=== PATIENT | female | born 1945 | race Caucasian/White ===

== ENCOUNTER 2017-06-02 19:33 | Inpatient (IN) | payer MEDICARE, MEDICAID ==
[2017-06-02] MEDS ORDERED: NIFEdipine 30 mg ER Tab PO STA (21:00)
[2017-06-02] MEDS ORDERED: Dextrose 10% 1,000 ML IV SCH (21:00)
[2017-06-02] MEDS ORDERED: NITROGLYCERIN SPRAY 4.9 GM SL STA (21:14)
[2017-06-02 21:18] LABS: % BASOPHILS 0.3 % (0.0-2.0); % EOSINOPHILS 0.8 % (0.0-5.0); % LYMPHOCYTES 15.6 % (20.0-50.0); % MONOCYTES 3.7 % (2.0-10.0); % NEUTROPHILS 79.6 % (40.0-80.0); HEMATOCRIT 34.9 % (41.0-60); HEMOGLOBIN 11.5 gm/dL (12-16); MEAN CELL VOLUME 80.4 fl (81-100); MEAN CORPUSCULAR HEMOGLOBIN 26.5 pg (27.0-31.0); MEAN PLATELET VOLUME 9.3 fl; NEUTROPHILE ABSOLUTE 7.1 Th/cmm (1.8-8.0); PLATELET COUNT 226 Th/cmm (150-400); RED BLOOD COUNT 4.34 Mil/cmm (3.80-5.20); RED CELL DISTRIBUTION WIDTH 15.6 % (11.5-20.0)
[2017-06-02 21:25] LABS: WHITE BLOOD COUNT 8.9 Th/cmm (4.8-10.8)
[2017-06-02 21:33] LABS: CHOLESTEROL 253 mg/dL (<200); TRIGLYCERIDES 174 mg/dL (<150)
[2017-06-02] MEDS ORDERED: Dextrose 10% 1,000 ML IV ONE (21:48)
[2017-06-02 21:50] LABS: ALB/GLOB RATIO 1.1 (1.0-1.8); ALKALINE PHOSPHATASE 75 U/L (34-104); ANION GAP 11.1 (7.0-16.0); BILIRUBIN,TOTAL 0.3 mg/dL (0.3-1.0); BUN - UREA NITROGEN 33 mg/dL (7-25); CALCIUM SERUM 8.9 mg/dL (8.6-10.3); CARBON DIOXIDE 23.9 mEq/L (21.0-31.0); CHLORIDE 103 mEq/L (98-107); CREATININE - SERUM 2.2 mg/dL (0.6-1.2); GLUCOSE 132 mg/dL (70-105); SGOT 23 U/L (13-39); SGPT/ALT 15 U/L (7-52); SODIUM SERUM 135 mEq/L (136-145)
[2017-06-02] MEDS ORDERED: Potassium Chloride 20 mEq ER Tab PO ONE ×2 (22:42→22:43)
[2017-06-02] MEDS ORDERED: Metoclopramide 5 mg/mL 2mL Vial ONE (23:57)
[2017-06-03] MEDS ORDERED: INSULIN ASPART SLIDING SCALE 100 UNITS/ML UNIT SUBQ ONE (00:16)
[2017-06-03 00:21] LABS: URINE BILIRUBIN NEGATIVE (NEGATIVE); URINE BLOOD NEGATIVE (NEGATIVE); URINE GLUCOSE (UA) NEGATIVE (NEGATIVE); URINE KETONE NEGATIVE (NEGATIVE); URINE PROTEIN 100 mg/dL (NEGATIVE); URINE UROBILINOGEN 0.2 E.U./dL (0.2 - 1.0)
[2017-06-03 00:23] LABS: URINE COLOR YELLOW
[2017-06-03 00:33] LABS: URINE BACTERIA MANY /hpf (NONE SEEN); URINE EPITHELIAL CELLS FEW /lpf (FEW); URINE RBC 0-2 /hpf (0-5)
--- NOTE | 2017-06-03 01:48 | ER Physician Documentation ---
DATE OF SERVICE: 06/02/2017 EMERGENCY ROOM EVALUATION AND TREATMENT The patient came via [facility]. I was told that the patient had a low blood sugar of 40, but by the time the patient came to the hospital here, the blood sugar according to the nurse was 147 and the blood pressure also was told that it was low, but the blood pressure here was 157/56, temperature is 97.9, pulse is 51, respirations 15. These are our Emergency Room parameters. The saturation is 98%. Height of 5 feet, weight of 144. The history was taken from the patient. The patient was brought from home. An EKG has been ordered; I will look at it to see what is the problem. The patient says that she has had 6 children and she has had two C-sections. Her current medications include glipizide 5 mg p.o. twice a day; carvedilol, the strength of which she does not know; nifedipine 90 mg p.o. once a day. She had two C-sections done in the past. MEDICAL HISTORY: Includes a history of hypoglycemia about 2 months ago, while she was driving she felt that she was confused and she was getting diaphoretic and not feeling good, and hence she was admitted over there to the hospital. HISTORY OF PRESENT ILLNESS: Currently, the patient was apparently fine until about yesterday night when she was not feeling good, and the same thing continued today, and she was brought to the Emergency Room over here. The triage nurse took care of the patient and because of her blood sugar of 40 and because of long-acting glipizide and hypotension and hypoglycemia, the patient most likely may need admission. We will inform the primary care physician. I was told the doctor is Dr. Regan, but the nurse will do the research and find out who is the admitting doctor. I will talk to that doctor. The patient, otherwise, is doing fine. No other complaints. She is . She has 6 children. She has no other complaints. FAMILY HISTORY: Benign and negative. REVIEW OF SYSTEMS: EYES: No history of double vision, blurring, or blindness. CENTRAL NERVOUS SYSTEM: No history of TIA, stroke, encephalitis, meningitis. PULMONARY: No history of pneumonia, TB, pulmonary embolism, COPD, emphysema, bronchitis. BONES AND JOINTS: No apparent complaints. GASTROINTESTINAL: No diarrhea, no constipation, no vomiting. ENDOCRINE: The patient has diabetes mellitus. No history of thyroid disease. The patient's other history is noncontributory. BONES AND JOINTS: No apparent complaints. DIAGNOSTIC DATA: An EKG was done, which showed a normal sinus rhythm, nonspecific ST-T changes, T waves were inverted in lead I, aVL, V4-V6. It looks like in the lateral wall of the left ventricle, there are some nonspecific diffuse T-wave changes, which may be secondary to ischemia. We will check the patient's lipid profile to see if there is anything wrong with the lipids and we will give the patient some nitrates and p.r.n. nitrates ordered if needed. PHYSICAL EXAMINATION: GENERAL: The patient appears to be awake, alert, oriented, not in any acute cardiorespiratory distress. HEENT: Conjunctivae pink. Sclerae white. HEENT is normal. Jugular venous pressure is normal. EXTREMITIES: No cyanosis, no petechia, no ecchymosis, no edema over the legs. Peripheral pulses appear to be normal. CHEST: Clear. NECK: Trachea being central. CHEST: Fairly good air entry. Both lungs without any rales, rhonchi, bronchial breathing. ABDOMEN: Soft, benign, and negative. Has a surgical scar in the lower part, vertical scar for two C-sections. The patient has three boys and three girls, but only two sections were done. Gastrointestinal examination reveals bowel sounds are normal. Liver and spleen not enlarged. No free fluid in the abdominal cavity. HEART: Reveals normal heart sounds. No fourth heart sound. Second heart sound is physiologically split. CENTRAL NERVOUS SYSTEM: The patient has a history of previous paralysis of the left face. She does not know much details, but the arm and the leg, etc. are not paralyzed. CLINICAL IMPRESSION: The patient presented with hypoglycemia, most likely may be secondary to glipizide 5 mg b.i.d., glipizide on hold. The patient is getting D10 in water. We will keep the rate at 150 mL an hour. Blood pressure was 157/46. Other blood pressures are not taken and we need to get more blood pressure readings. The triage nurse has been asked to call the patient's physician, so that we can discuss the case as to what further to be done. The other possibility is that the patient may be having coronary artery disease. We will check the troponin level on the patient. We will also check the patient's lipid profile and nitroglycerin on a p.r.n. basis for the patient. Other orders have been written for the patient. X-ray has been ordered. JOB# [id number]
[2017-06-03] MEDS: D5-0.45NS 1,000 ML IV SCH (02:28)
[2017-06-03] MEDS ORDERED: Potassium Chloride 20 mEq ER Tab PO ONE (02:44)
[2017-06-03 04:21] VITALS: BP 170/89
[2017-06-03 04:30] LABS: % BASOPHILS 0.3 % (0.0-2.0); RED CELL DISTRIBUTION WIDTH 15.9 % (11.5-20.0)
[2017-06-03 04:39] LABS: % EOSINOPHILS 1.1 % (0.0-5.0); % LYMPHOCYTES 25.6 % (20.0-50.0); % MONOCYTES 7.1 % (2.0-10.0); % NEUTROPHILS 65.9 % (40.0-80.0); ANION GAP 8.3 (7.0-16.0); BUN - UREA NITROGEN 31 mg/dL (7-25); BUN/CREATININE RATIO 14.1; CALCIUM SERUM 8.5 mg/dL (8.6-10.3); CARBON DIOXIDE 25.1 mEq/L (21.0-31.0); CHLORIDE 105 mEq/L (98-107); CREATININE - SERUM 2.2 mg/dL (0.6-1.2); GLUCOSE 186 mg/dL (70-105); HEMOGLOBIN 10.1 gm/dL (12-16); MEAN CELL VOLUME 80.1 fl (81-100); MEAN CORPUSCULAR HEMOGLOBIN 26.3 pg (27.0-31.0); MEAN CORPUSCULAR HGB CONC 32.8 pg (28.0-36.0); NEUTROPHILE ABSOLUTE 5.2 Th/cmm (1.8-8.0); PLATELET COUNT 207 Th/cmm (150-400); POTASSIUM SERUM 3.4 mEq/L (3.5-5.1); RED BLOOD COUNT 3.83 Mil/cmm (3.80-5.20); SODIUM SERUM 135 mEq/L (136-145); WHITE BLOOD COUNT 7.9 Th/cmm (4.8-10.8)
[2017-06-03 04:42] LABS: HEMATOCRIT 30.7 % (41.0-60)
--- NOTE | 2017-06-03 07:36 | Diagnostic Imaging Report ---
Portable chest x-ray Time: 2116 hours History: Congestive heart failure Allowing for portable technique the heart size is prominent. No focal pulmonary parenchymal processes. No hilar or mediastinal abnormalities. Impression: No acute abnormalities.
[2017-06-03] MEDS ORDERED: NIFEdipine 30 mg ER Tab PO SCH ×2 (10:15→21:00)
--- NOTE | 2017-06-03 11:21 | Consultation ---
DATE OF CONSULTATION: REFERRING PHYSICIAN: Oumar Regan M.D. REASON FOR CONSULT: Diabetes out of control with hypoglycemic episodes. HISTORY OF PRESENT ILLNESS: The patient is a 71-year-old pleasant female with history of type 2 diabetes diagnosed in 2002, who started using insulin about a year ago, history of essential hypertension and insomnia, who reports 2 episodes of hypoglycemia over the last couple of months. During the first episode, the patient apparently was driving and had to pull off the street given weakness and dizzyness. She was eventually assisted and taken to the hospital. This time around, she was feeling well until she started having blurry vision and weakness. She was able to call her who brought her into the ER. Her glucometer reading was noted to be 40. The patient has been admitted to telemetry for further management and care. The patient states that her diabetes has been somewhat out of control for the last 2 years after she had an episode of shingles. At that time, her glucose was noted to be high, and apparently her medications were adjusted and since then she has been having labile glucometer readings. She also states that at times, she eats small portions of food and this could be the reason why her hypoglycemia has been worsened. MEDICATIONS: Include glipizide which was started a few weeks ago prior to the episodes commencing. Her glipizide was 5 mg twice a day. She also takes Coreg and previously was taking metformin, but was taken out of her regimen secondary to renal insufficiency. PAST MEDICAL HISTORY: As noted above. PAST SURGICAL HISTORY: Include two C-sections and cervical neck ablation 40 years ago. FAMILY HISTORY: Hypertension on her mom side. SOCIAL HISTORY: No tobacco, ETOH or illicit drug usage. ALLERGIES: NKDA. OUTPATIENT MEDICATIONS: Procardia 30 mg p.o. daily, metoprolol 25 daily. She is taking also a long-acting insulin, which she could not remember and glipizide 2.5 b.i.d. REVIEW OF SYSTEMS: CONSTITUTIONAL: No fever or chills. No recent weight loss. CARDIOVASCULAR: No chest pain or palpitations. PULMONARY: No cough or sputum production. GASTROINTESTINAL: No bowel habit changes. GENITOURINARY: No bladder habit changes. NEUROLOGIC: Dizziness and lightheadedness. No syncopal episode. PHYSICAL EXAMINATION: VITAL SIGNS: Temperature 98.4, pulse 62 to 65, blood pressure 170/65, respirations 18, satting 98% on room air. GENERAL: She is a well-developed, well-nourished female, not in acute distress. HEAD AND NECK: Normocephalic, atraumatic. Pupils reactive to light. Extraocular movements are intact. Oropharynx moist and clear. NECK: There is no JVD or LAD. CARDIAC: Regular rate and rhythm without any murmurs. LUNGS: Clear to auscultation bilaterally. ABDOMEN: Soft, supple, nontender, nondistended. Normoactive bowel sounds. EXTREMITIES: On lower extremities, there is no pedal edema. NEUROLOGIC: Grossly intact and nonfocal. Cranial nerves 2-12 are within normal limits. She is able to move all 4 extremities with equal force and strength. LABORATORY DATA: White count 8.9 and H and H with a platelet count of 226. Sodium 135, potassium 3.4, chloride 103, BUN 33, creatinine 2.2, glucose 132. Triglycerides 174. Cholesterol 253, LDL 185, HDL 60. UA shows some protein and positive for leukocyte esterase with 6-10 wbc's. DIAGNOSTICS: Chest x-ray shows no acute abnormalities. ASSESSMENT: 1. Type 2 diabetes with hypoglycemic episodes. 2. History of type 2 diabetes with renal complications. 3. Hypertension, out of control. 4. Likely chronic renal insufficiency. 5. Anemia, likely secondary to above. 6. History of insomnia. 7. Elevated DD level. PLAN: The patient has been admitted to the medical/surgical floor where she has been placed on IV fluids, D10 50 mL per hour. We will continue glucometer readings q.4 hours around the clock x 24 hours. The patient's glipizide has been discontinued and she has been on a insulin sliding scale for the time being. Her electrolytes will be monitored and her potassium has been repleted. The patient's blood pressure medication has been increased and I will start her on Cipro p.o. for UTI. Will adjust BP meds as tolerated. I would like to thank Dr. Oumar Regan for the consult. JOB# [id number] [facility]
[2017-06-03] MEDS: NIFEdipine 30 mg ER Tab PO SCH ×2 (13:01→20:12)
--- NOTE | 2017-06-03 14:46 | History & Physical ---
ADMIT DATE: 06/03/2017 INITIAL SYMPTOMS: 1. Gross hypoglycemia. 2. Diabetes, poorly controlled. 3. Altered level of consciousness. 4. Body tremors. 5. Abnormal EKG. RECENT MEDICAL HISTORY: This patient is a 71-year-old female, who presented to [facility] ER yesterday in the late evening of 06/02/2017. At home, the patient was experiencing chills, trembling with a very, very low glucose reading in the 50s, having recently changed her diabetes by mouth medication. She was brought to the Emergency Department at [facility] and there were multiple pathologies noted on lab testing and otherwise, those included hemoglobin of 10.1, demonstrating anemia; a low potassium of 3.4; a low sodium of 135; an elevated BUN of 31 and elevated creatinine, 2.2 both indicative of chronic kidney disease; elevated hemoglobin A1c already known 7.5 diabetic; and an abnormal EKG that demonstrated T-wave abnormalities, borderline pathologic QT prolonged intervals, rule out possible lateral ischemia on her borderline abnormal EKG. Because of the patient's age, the low blood sugar, and the altered level of consciousness of this patient on initial presentation when the ambulance picked her up, the ER doctor felt it was imperative that she will be admitted. She spoke at length with me about the patient's laboratory findings and I agree that the patient required admission. FAMILY HISTORY: The family history of this patient is unknown. SOCIAL HISTORY: This patient does not taking any alcoholic beverages. The history regarding cigarette smoking is not known with this patient. ALLERGIES: No known drug allergies. REVIEW OF SYSTEMS: HEENT: Not significant for today's admission. CHEST: Not significant for today's admission. CARDIAC: Significant for today's admission and that the patient has a borderline abnormal EKG, demonstrating prolonged QT interval and T-wave abnormalities. LUNGS: Not significant for today's admission. ABDOMEN: Not significant for today's admission. EXTREMITIES: Not significant for today's admission. GENITALIA: Not significant for today's admission. PSYCHIATRIC: Not significant for today's admission. NEUROLOGICAL: Significant for today's admission and that the patient on initial capture by the ambulance was demonstrating altered level of consciousness. PHYSICAL EXAMINATION: HEENT: Normal cephalous. Pupils are equally reactive to light and accommodation. Fundi intact bilaterally. Extraocular motion intact. Oropharynx is clear. Tympanic membranes intact, right and left with no infection. Cephalous as mentioned, demonstrates no trauma and is symmetrical. CHEST: Normal inspiration and expiratory movements. CARDIAC: Lower than normal cardiac rate in the low 50s. No gross murmurs, although, EKG is significant for T-wave abnormalities and QT prolonged interval. ABDOMEN: Nondistended and nontender to palpation in all 4 quadrants. No abnormal masses. Positive bowel sounds in all 4 quadrants. EXTREMITIES: Nontender to palpation. Motor 5/5 in all 4 extremities. GENITALIA: Refused. PSYCHIATRIC: Alert and oriented x 4. Mood and affect normal. IMPRESSION: 1. Hypoglycemia. 2. Diabetes with poor control of blood sugar. 3. Altered level of consciousness. 4. Abnormal EKG. 5. Chronic kidney disease, unstaged. PLAN: Admit to medical surgery with telemetry. We will continue with the D10 IV that the patient was receiving prescribed by the ER doctor. We will have the patient on clear liquids temporarily. We will have the patient continue her medications that she brought from home, nifedipine extended release 90 mg p.o. daily and glipizide 5 mg, we are not going to continue. We will see what Dr. Renner has to say about that, but prior to Dr. Rnener seen the patient, I have instituted a sliding scale utilizing regular insulin; readings taken every 4 hours of fingerstick glucose any readings between 150 and 200, will receive 2 units of regular insulin; 201-250, received 4 units of regular insulin; 251 of blood glucose to 300, will receive 6 units; and 301-350, will receive 8 units; greater than 350, received 10 units and this is sliding scale that will be taken every 4 hours. Because of elevated D-dimer, that turned out to be 1950, we will also be performing a VQ scan, lung perfusion scan, rule out pulmonary embolus and also a Doppler ultrasound of the lower extremities to rule out DVT of the lower extremities, both right and left sides. CONSULTS: 1. Consult with Dr. Cheri Mix for abnormal EKG. Rule out congestive heart failure with diastolic dysfunction. Dr. Regan is ordering troponin I to be performed x 4 every 6 hours, D-dimer, BNP, and repeat EKG in the morning. Repeat chest x-ray. 2. Consult Nephrology, Dr. Hendricks for chronic kidney disease with the elevated creatinine and the elevated BUN. 3. Consult Dr. Renner in internal medicine/diabetes for diabetes not well controlled, requiring more professional treatment. JOB# [id number]
--- NOTE | 2017-06-03 15:13 | Diagnostic Imaging Report ---
Bilateral lower extremity DVT study HISTORY: Pain COMPARISON: None Technique: Longitudinal and transverse sonographic images of the bilateral lower extremity veins were obtained with doppler analysis. FINDINGS: There is normal compressibility, augmentation and phasicity of the bilateral common femoral, superficial femoral, popliteal, and posterior tibial veins. No thrombus is visualized. IMPRESSION: No evidence of thrombus within the bilateral lower extremity veins.
[2017-06-03] MEDS ORDERED: INSULIN ASPART SLIDING SCALE 100 UNITS/ML UNIT SUBQ SCH (16:30)
[2017-06-03] MEDS: INSULIN ASPART SLIDING SCALE 100 UNITS/ML UNIT SUBQ SCH ×2 (17:45→20:16)
--- NOTE | 2017-06-03 18:54 | Consultation ---
DATE OF CONSULTATION: 06/03/2017 ATTENDING PHYSICIAN: Oumar Regan M.D. REASON FOR CONSULTATION: Worsening kidney function, electrolyte imbalance and fluid management. HISTORY OF PRESENT ILLNESS: This is a 71-year-old female with past medical history of chronic kidney disease, who came in because of hypoglycemic episode. A few hours prior to admission, the patient developed blurry vision, dizziness, along with weakness. Her blood sugar turned out to be 40. Her then took her to the Emergency Room. Her blood sugar at the Emergency Room was 147. Vitals including blood pressure was 152/56, temperature of 97.9, but a pulse of 51. Chest x-ray revealed no acute disease. Troponin levels were 0.02, 0.02, and 0.03 respectively. BNP was 608. Urinalysis was suggestive of uncomplicated UTI. EKG revealed normal sinus at [address]-T wave changes. She had no nausea and vomiting, diarrhea, headaches, chest pain, shortness of breath or palpitations. Her labs drawn at the Emergency Room revealed BUN/creatinine of 33/2.2. PAST MEDICAL HISTORY: 1. Chronic kidney disease. 2. Type 2 diabetes mellitus for approximately 3 years. 3. Essential hypertension for 45 years. PAST SURGICAL HISTORY: 2 section. SOCIAL HISTORY: No history of alcohol or tobacco use. She used to work gathering fruits and vegetables. FAMILY HISTORY: Noncontributory to present illness. REVIEW OF SYSTEMS: GENERAL: She did complain of weakness. Appetite had been fair. No fever, no chills. HEENT: She did develop some mild dizziness, lightheadedness, but no headaches. Vision became blurry. Hearing acuity remains within acceptable limits. CARDIORESPIRATORY: She has a history of hypertension. At this point, she does not have any chest pain, palpitations, diaphoresis, shortness of breath. No cough. GASTROINTESTINAL: No nausea and vomiting, abdominal pain or cramping, hematemesis, melena, hematochezia, or diarrhea. ENDOCRINE: She has a history of diabetes, but no history of thyroid abnormalities, no dyslipidemia. MUSCULOSKELETAL: Multiple joint arthralgias. GENITOURINARY: History of chronic kidney disease. Denied any dysuria, no hematuria; however, urine was suggestive of a UTI. NEUROPSYCH: No syncopal episode or seizure activity. No neuropathy. PHYSICAL EXAMINATION: NEUROLOGIC: The patient is alert, verbal, and comfortable. VITAL SIGNS: Blood pressure is 138/78, pulse 82, temperature 97 degrees. SKIN: Good turgor, warm. No rash, no jaundice appreciated. HEENT: Head normocephalic, atraumatic. EYES: Extraocular muscles intact. Pupils equal, round, reactive to light and accommodation. Anicteric sclerae, pink conjunctivae. Nose, midline nasal septum. Mouth, moist mucosa with adequate dentition. NECK: Supple. No adenopathy, no thyromegaly, no bruits. Trachea palpated in the midline. CHEST AND CVS: S1, S2. No rub, murmur, or gallop appreciated. Point of maximal impulse fifth intercostal space, left midclavicular line. No abdominal or femoral bruits appreciated. LUNGS: Equal expansion. No use of accessory muscles. No supraclavicular retractions. Decreased breath sounds, but clear to auscultation without any wheeze. BREASTS: Symmetrical, without any discharge. ABDOMEN: Globular, soft. Positive for bowel sounds. No bruits, either diastolic or systolic. RECTAL: The patient refused. GENITOURINARY: Normal appearing female genitalia. MUSCULOSKELETAL: No effusions present in her joints with adequate range of motion. EXTREMITIES: No evidence of any edema, cyanosis or clubbing with palpable femoral, popliteal and dorsalis pedis pulses. NEUROLOGIC: The patient is alert, verbal, motor is 5/5. Cranial nerves 3-12 intact. Sensory intact. LABORATORY DATA: Did reveal a white count of 7.9, hemoglobin 10.1, hematocrit 30.7, D-dimer of 1950. Sodium 135, potassium 3.4, chloride 105, bicarbonate 25, BUN 31, creatinine 2.2, glucose 186, hemoglobin A1c is 7.5%, calcium 8.5. BNP 608. IMPRESSION: 1. Chronic kidney disease, MDRD GFR 21.9 mL per minute, stage 4. The patient's chronic kidney disease is secondary to hypertension and atherosclerosis with long stranding history of hypertension. As per patient, she was just recently diagnosed to have diabetes, so I doubt that there is adequate time for development of diabetic nephropathy. 2. Hypoglycemic episode secondary to sulfonyl urea. 3. Type 2 diabetes mellitus. 4. Essential hypertension. 5. History of bradycardia secondary to beta-edmond as well as calcium channel edmond. 6. Elevated BNP secondary to kidney failure, doubt patient is in acute congestive heart failure. 7. Hypokalemia. 8. Dyslipidemia. PLAN: 1. Urinalysis. 2. Urine spot sodium, eosinophils and creatinine. 3. Renal ultrasound. 4. Agree with potassium replacement. 5. Follow up electrolytes, magnesium, TSH level. 6. Consider discontinuing Lasix because the patient does not have any fluid retention. 7. Agree with sliding scale only, avoid sulfonylureas as well as basal insulin for now. [facility]# [id number]
[2017-06-03] MEDS: Atorvastatin Calcium 10 MG TAB PO SCH (20:12)
[2017-06-04] MEDS: INSULIN ASPART SLIDING SCALE 100 UNITS/ML UNIT SUBQ SCH ×7 (04:25→20:34)
[2017-06-04] MEDS: NIFEdipine 30 mg ER Tab PO SCH ×3 (04:31→22:26)
[2017-06-04 05:43] LABS: ANION GAP 9.3 (7.0-16.0); BUN - UREA NITROGEN 24 mg/dL (7-25); CALCIUM SERUM 8.7 mg/dL (8.6-10.3); CARBON DIOXIDE 26.3 mEq/L (21.0-31.0); CHLORIDE 107 mEq/L (98-107); GLUCOSE 116 mg/dL (70-105); MAGNESIUM 1.9 mg/dL (1.9-2.7); PHOSPHOROUS 3.6 mg/dL (2.5-5.0); POTASSIUM SERUM 3.6 mEq/L (3.5-5.1); SODIUM SERUM 139 mEq/L (136-145)
[2017-06-04] MEDS: D5-0.45NS 1,000 ML IV SCH (06:39)
--- NOTE | 2017-06-04 07:13 | Diagnostic Imaging Report ---
Exam: Ventilation/perfusion scan HISTORY: Memory embolism. Findings: Utilizing 38.7 mCi technetium 99m DTPA and 5.5 mCi of technetium 99 MAA ventilation/perfusion examination of the lungs was performed multiple planes. The study demonstrates normal uptake of radiopharmaceutical throughout the lung parenchyma. There is no evidence for mismatched ventilation/perfusion defects. IMPRESSION: Normal exam, no evidence of pulmonary emboli bilaterally.
--- NOTE | 2017-06-04 08:55 | Diagnostic Imaging Report ---
Portable chest x-ray HISTORY: Shortness of breath Compared with the prior exam of June 02, 2017, there is persistent cardiomegaly. No focal pulmonary processes. No hilar or mediastinal abnormalities. IMPRESSION: 1. No focal pulmonary processes 2. Persistent cardiomegaly
[2017-06-04] MEDS: Atorvastatin Calcium 10 MG TAB PO SCH (09:19)
--- NOTE | 2017-06-04 12:01 | Diagnostic Imaging Report ---
Exam: Renal ultrasound. HISTORY: Chronic renal disease. Findings: Real-time ultrasound summation kidneys performed multiple planes. The study demonstrates no evidence of obstructive uropathy or nephrolithiasis. Right kidney measures 10.2 x 5 x 6 cm and contains 1.5 cm cyst. Left kidney measures 7.5 x 3.8 x 3.3 cm diameter. The bladder is intact. IMPRESSION normal examination of kidneys.
[2017-06-04] MEDS ORDERED: Probiotic Screen MC PRN (15:21)
--- NOTE | 2017-06-04 15:39 | General Progress Note ---
Subjective - Review of Systems Service Date: 06/04/17 Subjective: alert, comfortable, verbal, no sob,cp Objective - Results Result Diagrams: 06/03/17 04:00 06/04/17 04:57 Recent Labs: Laboratory Last Values WBC 7.9 Th/cmm (4.8-10.8) 06/03/17 04:00 RBC 3.83 Mil/cmm (3.80-5.20) 06/03/17 04:00 Hgb 10.1 gm/dL (12-16) L 06/03/17 04:00 Hct 30.7 % (41.0-60) L D 06/03/17 04:00 MCV 80.1 fl (81-100) L 06/03/17 04:00 MCH 26.3 pg (27.0-31.0) L 06/03/17 04:00 MCHC Differential 32.8 pg (28.0-36.0) 06/03/17 04:00 RDW 15.9 % (11.5-20.0) 06/03/17 04:00 Plt Count 207 Th/cmm (150-400) 06/03/17 04:00 MPV 10.0 fl 06/03/17 04:00 Neutrophils % 65.9 % (40.0-80.0) 06/03/17 04:00 Lymphocytes % 25.6 % (20.0-50.0) 06/03/17 04:00 Monocytes % 7.1 % (2.0-10.0) 06/03/17 04:00 Eosinophils % 1.1 % (0.0-5.0) 06/03/17 04:00 Basophils % 0.3 % (0.0-2.0) 06/03/17 04:00 Eos Smear Source URINE 06/03/17 16:41 Eos Smear Total Cells NONE SEEN (NONE SEEN) 06/03/17 16:41 D-Dimer 1950 ng/mL (100-400) H 06/03/17 04:00 Sodium 139 mEq/L (136-145) 06/04/17 04:57 Potassium 3.6 mEq/L (3.5-5.1) 06/04/17 04:57 Chloride 107 mEq/L (98-107) 06/04/17 04:57 Carbon Dioxide 26.3 mEq/L (21.0-31.0) 06/04/17 04:57 Anion Gap 9.3 (7.0-16.0) 06/04/17 04:57 BUN 24 mg/dL (7-25) 06/04/17 04:57 Creatinine 2.0 mg/dL (0.6-1.2) H 06/04/17 04:57 Est GFR ( Amer) TNP 06/04/17 04:57 Est GFR (Non-Af Amer) TNP 06/04/17 04:57 BUN/Creatinine Ratio 12.0 06/04/17 04:57 Glucose 116 mg/dL (70-105) H 06/04/17 04:57 POC Glucose 179 MG/DL (70 - 105) H 06/04/17 11:17 Hemoglobin A1c % 7.5 % (4.0-6.0) H 06/02/17 21:10 Calcium 8.7 mg/dL (8.6-10.3) 06/04/17 04:57 Phosphorus 3.6 mg/dL (2.5-5.0) 06/04/17 04:57 Magnesium 1.9 mg/dL (1.9-2.7) 06/04/17 04:57 Total Bilirubin 0.3 mg/dL (0.3-1.0) 06/02/17 21:10 AST 23 U/L (13-39) 06/02/17 21:10 ALT 15 U/L (7-52) 06/02/17 21:10 Alkaline Phosphatase 75 U/L (34-104) 06/02/17 21:10 Troponin I 0.02 ng/mL (0.01-0.05) 06/03/17 22:17 B-Natriuretic Peptide 736.0 pg/mL (5.0-100.0) H 06/04/17 04:57 Total Protein 7.2 gm/dL (6.0-8.3) 06/02/17 21:10 Albumin 3.8 gm/dL (3.7-5.3) 06/02/17 21:10 Globulin 3.4 gm/dL 06/02/17 21:10 Albumin/Globulin Ratio 1.1 (1.0-1.8) 06/02/17 21:10 Triglycerides 174 mg/dL (<150) H 06/02/17 21:10 Cholesterol 253 mg/dL (<200) H 06/02/17 21:10 LDL Cholesterol Direct 185 mg/dL (75-193) 06/02/17 21:10 HDL Cholesterol 60 mg/dL (23-92) 06/02/17 21:10 TSH 3.34 uIU/ml (0.34-5.60) 06/04/17 04:57 Urine Source RANDOM 06/02/17 21:30 Urine Color YELLOW 06/02/17 21:30 Urine Clarity HAZY (CLEAR) 06/02/17 21:30 Urine pH 6.0 (4.6 - 8.0) 06/02/17 21:30 Ur Specific [place] 1.015 (1.005-1.030) 06/02/17 21:30 Urine Protein 100 mg/dL (NEGATIVE) H 06/02/17 21:30 Urine Glucose (UA) NEGATIVE mg/dL (NEGATIVE) 06/02/17 21:30 Urine Ketones NEGATIVE mg/dL (NEGATIVE) 06/02/17 21:30 Urine Blood NEGATIVE (NEGATIVE) 06/02/17 21:30 Urine Nitrate NEGATIVE (NEGATIVE) 06/02/17 21:30 Urine Bilirubin NEGATIVE (NEGATIVE) 06/02/17 21:30 Urine Urobilinogen 0.2 E.U./dL (0.2 - 1.0) 06/02/17 21:30 Ur Leukocyte Esterase TRACE (NEGATIVE) H 06/02/17 21:30 Urine RBC 0-2 /hpf (0-5) 06/02/17 21:30 Urine WBC 6-10 /hpf (0-5) H 06/02/17 21:30 Ur Epithelial Cells FEW /lpf (FEW) 06/02/17 21:30 Urine Bacteria MANY /hpf (NONE SEEN) 06/02/17 21:30 Ur Random Sodium 71 mmol/L 06/03/17 16:41 Urine Creatinine 26.0 mg/dl (28.0-217.0) L 06/03/17 16:41 - Physical Exam Vitals and I&O: Vital Signs Temp 98.1 F 06/04/17 12:00 Pulse 64 06/04/17 14:27 Resp 18 06/04/17 14:58 BP 192/56 06/04/17 14:27 Pulse Ox 98 06/04/17 12:00 Intake & Output 06/03/17 06/04/17 06/04/17 18:59 06:59 18:59 Intake Total 1500 1204.583 Output Total 1 Balance 1500 1203.583 Weight (lbs) 68.946 kg 68.946 kg Intake: Intake, IV Amount 704.583 D5-0.45NS 1,000 ml @ 25 704.583 mls/hr IV .Q24H [facility] Rx#: [id number] Oral 1500 500 Output: Stool 1 Other: # Voids 4 4 # Bowel Movements 1 Stool Characteristics Soft Soft Soft Formed Formed Formed Active Medications: Current Medications Acetaminophen (Tylenol) 650 mg PO Q6HR PRN PRN Reason: Pain (Moderate) Stop: 08/03/17 13:06 Atorvastatin Calcium (Lipitor) 20 mg PO DAILY [facility] PRN Reason: Protocol Stop: 08/02/17 18:29 Last Admin: 06/04/17 09:19 Dose: 20 mg Ciprofloxacin (Cipro) 250 mg PO BID [facility] Stop: 08/02/17 09:44 Last Admin: 06/04/17 09:19 Dose: 250 mg Furosemide (Lasix) 40 mg IVP DAILY [facility] Stop: 08/03/17 08:59 Last Admin: 06/04/17 09:19 Dose: 40 mg Hydralazine HCl (Apresoline) 25 mg PO BID [facility] Stop: 08/03/17 09:29 Last Admin: 06/04/17 09:35 Dose: 25 mg Hydralazine HCl (Apresoline) 50 mg PO TID [facility] Stop: 08/03/17 20:59 Dextrose/Sodium Chloride (D5-0.45ns) 1,000 mls @ 25 mls/hr IV .Q24H [facility] Stop: 08/02/17 00:14 Last Admin: 06/04/17 06:39 Dose: 25 mls/hr Insulin Aspart (Novolog Insulin Sliding Scale) 0 units SUBQ ACHS NICHO PRN Reason: Protocol Stop: 08/03/17 16:29 Insulin Aspart (Novolog Insulin Sliding Scale) 0 units SUBQ Q4HR NICHO PRN Reason: Protocol Stop: 06/04/17 16:29 Last Admin: 06/04/17 12:21 Dose: 2 units Lactobacillus Rhamnosus (Culturelle) 1 each PO DAILY [facility] Stop: 08/04/17 08:59 Losartan Potassium (Cozaar) 50 mg PO Q12HR NICHO Stop: 08/03/17 05:19 Last Admin: 06/04/17 05:37 Dose: 50 mg Metoprolol Tartrate (Lopressor) 25 mg PO Q8HR NICHO Stop: 08/03/17 12:59 Last Admin: 06/04/17 14:27 Dose: 25 mg Miscellaneous (Probiotic Screen) 1 ea MC PRN PRN PRN Reason: PROTOCOL Stop: 08/03/17 15:20 Nifedipine (Procardia Xl) 30 mg PO Q8HR NICHO Stop: 08/02/17 12:59 Last Admin: 06/04/17 12:22 Dose: 30 mg Zolpidem Tartrate (Ambien) 5 mg PO HS PRN PRN Reason: Insomnia Stop: 08/02/17 09:30 General: Alert, Oriented x3, No acute distress HEENT: Atraumatic, PERRLA, EOMI Neck: Supple, +2 carotid pulse wo bruit Cardiovascular: Regular rate, Normal S1, Normal S2 Lungs: Clear to auscultation Abdomen: Bowel sounds, Soft Extremities: no Edema Neurological: Normal speech, Sensation intact Skin: no Rash Psych/Mental Status: Mood NL Assessment/Plan - Assessment Assessment: CKD Type 2 DM s/p hypoglycemia w/ CKD Ess Htn w/ CKD, r/o MI Elevated BNP 2nd to ckd Dyslipidemia Proteinuria - Plan Plan: Lab - Result Diagrams 06/03/17 04:00 06/04/17 04:57 Current Medications Acetaminophen (Tylenol) 650 mg PO Q6HR PRN PRN Reason: Pain (Moderate) Stop: 08/03/17 13:06 Atorvastatin Calcium (Lipitor) 20 mg PO DAILY NIC[facility] PRN Reason: Protocol Stop: 08/02/17 18:29 Last Admin: 06/04/17 09:19 Dose: 20 mg Ciprofloxacin (Cipro) 250 mg PO BID [facility] Stop: 08/02/17 09:44 Last Admin: 06/04/17 09:19 Dose: 250 mg Furosemide (Lasix) 40 mg IVP DAILY [facility] Stop: 08/03/17 08:59 Last Admin: 06/04/17 09:19 Dose: 40 mg Hydralazine HCl (Apresoline) 25 mg PO BID [facility] Stop: 08/03/17 09:29 Last Admin: 06/04/17 09:35 Dose: 25 mg Hydralazine HCl (Apresoline) 50 mg PO TID NICHO Stop: 08/03/17 20:59 Dextrose/Sodium Chloride (D5-0.45ns) 1,000 mls @ 25 mls/hr IV .Q24H [facility] Stop: 08/02/17 00:14 Last Admin: 06/04/17 06:39 Dose: 25 mls/hr Insulin Aspart (Novolog Insulin Sliding Scale) 0 units SUBQ ACHS NICHO PRN Reason: Protocol Stop: 08/03/17 16:29 Insulin Aspart (Novolog Insulin Sliding Scale) 0 units SUBQ Q4HR NICHO PRN Reason: Protocol Stop: 06/04/17 16:29 Last Admin: 06/04/17 12:21 Dose: 2 units Lactobacillus Rhamnosus (Culturelle) 1 each PO DAILY [facility] Stop: 08/04/17 08:59 Losartan Potassium (Cozaar) 50 mg PO Q12HR NICHO Stop: 08/03/17 05:19 Last Admin: 06/04/17 05:37 Dose: 50 mg Metoprolol Tartrate (Lopressor) 25 mg PO Q8HR [facility] Stop: 08/03/17 12:59 Last Admin: 06/04/17 14:27 Dose: 25 mg Miscellaneous (Probiotic Screen) 1 ea MC PRN PRN PRN Reason: PROTOCOL Stop: 08/03/17 15:20 Nifedipine (Procardia Xl) 30 mg PO Q8HR [facility] Stop: 08/02/17 12:59 Last Admin: 06/04/17 12:22 Dose: 30 mg Zolpidem Tartrate (Ambien) 5 mg PO HS PRN PRN Reason: Insomnia Stop: 08/02/17 09:30 Lab - Result Diagrams 06/03/17 04:00 06/04/17 04:57 Cr. stable @ 2 VQ scan, Duplex scan were neg BP remains elevated requiring multiple BP meds Renal US showed unequal sized kidneys, right 10.2, left 7.5 Consider MI due to accelerated HTN & unequal sized kidneys BS much improved, stay off sulfonylureas BNP eleveated 2nd to ckd, doubt in chf based on cxr & clinical exam & symptoms f/u elelctrolytes Nutritional Asmnt/Malnutr-PDOC - Dietary Evaluation Malnutrition Findings (Please click <Entered> for more info): Nutritional Asmnt/Malnutrition Start: 06/03/17 09: 49 Text: Status: Complete Freq: Document 06/03/17 09:50 [email or web address] (Rec: 06/03/17 09:59 [email or web address] [id number]) Nutritional Asmnt/Malnutrition Patient General Information Nutritional Screening Consult Diagnosis hypoglycemia, abnormal EKG, ALOC Pertinent Medical Hx/Surgical Hx DM Subjective Information Consult- DM. Pt speaks [place] . Staff translated. Pt does not eat very well, usually eats small amounts. Reports wt loss, but states UBW: 150 lbs , current wt: 152 lbs. Pt states she does not eat tortillas, but otherwise does not follow any diet. Pt is accpeting of diet education. Tolerated clear liquid diet breakfast. Current Diet Order/ Nutrition Support clear liquid Patient / S.O Can Pertinent Medications D10 @ 50 ml/hr Pertinent Labs 06/03 Na: 134, K: 3.4, BUN: 31 , Cr: 2.2, glucose: 132-186, hgba1c: 7.5, triglycerides: 174 Nutritional Hx/Data Height 1.52 m Height (Calculated Centimeters) 152.4 Current Weight (lbs) 68.946 kg Weight (Calculated Kilograms) 68.9 Weight (Calculated Grams) 37331.0 Usual body Weight (lbs) 150 % Usual Body Weight 101 [place] Body Weight 100 % [place] Body Weight 152 Recent Weight Change No Weight Status Overweight GI Symptoms GI Symptoms None Food Allergies No Usual diet at home no tortillas Skin Integrity/Comment: no wounds noted Current %PO awaiting Estimated Nutritional Goals BEE in Kcals: Adj wt of IBW Calories/Kcals/Kg 25-30 Kcals Calculated 8539-6273 kcals Protein: Adj wt of IBW Protein g/k Protein Calculated 51 g Fluid: ml 1530 mL (30 ml/kg) Nutritional Problem 2. Problem Problem inadequate oral intake Etiology DX, course of care Signs/Symptoms: clear liquid diet 1. Problem Problem food/nutrition related knowledge deficit Etiology DM Signs/Symptoms: pt not following DM diet at home, hgba1c: 7.5 Malnutrition Alert Protein-Calorie Malnutrition N/A Is there a minimum of two criteria No selected? Query Text:Check all the applicable criteria. A minimum of two criteria are recommended for diagnosis of either severe or non-severe malnutrition. Malnutrition Related to Morbid Obesity Malnutrition related to morbid obesity No Intervention/Recommendation Recommendations by RD Dietary Education by RD1 Comments 1. Provided DM diet education. Handout provided. Staff helped translate. No questions at this time. 2. When medically able, [facility], 60 gm CHO diet. Expected Outcomes/Goals Expected Outcomes/Goals 1. Pt to verbalize understanding of DM diet 2. Advance diet within 48 hours 3. Pt to tolerate diet without GI distress 4. Pt to have glycemic control 5. Wt stability
--- NOTE | 2017-06-04 22:08 | Consultation ---
DATE OF CONSULTATION: 06/03/[address] Regan. HISTORY AND PHYSICAL: This is a 71-year-old female patient, came to the Emergency Room because of hypoglycemia. During the hospital stay, the patient had elevated blood pressure as well as BNP level, complaining of headache. Hence cardiac consult is requested. PAST MEDICAL HISTORY: Diabetes mellitus type 2, insulin-dependent diabetes mellitus, diabetic CKD stage 3, hypertension uncontrolled, urinary tract infection, sinus bradycardia, hypokalemia, hyperlipidemia. FAMILY HISTORY: Unremarkable. SOCIAL HISTORY: No history of smoking or alcohol abuse. ALLERGIES: No known allergies. PHYSICAL EXAMINATION: VITAL SIGNS: Blood pressure 182/90, pulse 50, respirations 28. HEAD: Normocephalic. No lumps or bumps. EYES: Pupils equal, reactive to light. Fundi show AV nicking, sclerae white, conjunctivae pink. NECK: Carotid 2+. Normal upstroke. JVD 10 cm above sternal angle. Thyroid not palpable. Lymph nodes not palpable. CHEST: Shows increased AP diameter. No kyphosis or scoliosis. LUNGS: Bilateral rales. Decreased breath sounds at both the bases. HEART: PMI in 6th intercostal space with lateral to midclavicular line. S1, S2, S3, S4, soft systolic murmur. ABDOMEN: Soft. Liver and spleen not palpable. Hepatojugular reflux positive. Bowel sounds active. RECTAL: Deferred. EXTREMITIES: Peripheral pulses 1+, pedal edema 2+. CLINICAL IMPRESSION: Congestive heart failure, diastolic dysfunction, acute uncontrolled hypertension, diabetes mellitus type 2, poorly controlled with episodes of hypoglycemia, insulin-dependent diabetes mellitus, urinary tract infection, sinus bradycardia secondary to beta-edmond, hypokalemia, hyperlipidemia. PLAN: The patient to start on diuretics, control of blood pressure, get echocardiogram and monitor the patient on telemetry bed. JOB# [id number]
[2017-06-05 05:17] LABS: ANION GAP 11.1 (7.0-16.0); BUN - UREA NITROGEN 38 mg/dL (7-25); BUN/CREATININE RATIO 15.2; CALCIUM SERUM 8.2 mg/dL (8.6-10.3); CARBON DIOXIDE 25.6 mEq/L (21.0-31.0); CHLORIDE 103 mEq/L (98-107); CREATININE - SERUM 2.5 mg/dL (0.6-1.2); GLUCOSE 125 mg/dL (70-105); MAGNESIUM 1.8 mg/dL (1.9-2.7); POTASSIUM SERUM 3.7 mEq/L (3.5-5.1); SODIUM SERUM 136 mEq/L (136-145)
[2017-06-05] MEDS: NIFEdipine 30 mg ER Tab PO SCH (05:30)
[2017-06-05] MEDS: D5-0.45NS 1,000 ML IV SCH (07:00)
[2017-06-05] MEDS: INSULIN ASPART SLIDING SCALE 100 UNITS/ML UNIT SUBQ SCH ×2 (07:08→12:21)
[2017-06-05] MEDS ORDERED: Lactobacillus Rhamnosus 10 Billion CFU Capsule PO SCH (09:00)
[2017-06-05] MEDS: Atorvastatin Calcium 10 MG TAB PO SCH (09:20)
--- NOTE | 2017-06-05 12:51 | General Progress Note ---
Subjective - Review of Systems Service Date: 06/05/17 Subjective: alert, comfortable, verbal, no sob,cp Objective - Results Result Diagrams: 06/03/17 04:00 06/05/17 04:49 Recent Labs: Laboratory Last Values WBC 7.9 Th/cmm (4.8-10.8) 06/03/17 04:00 RBC 3.83 Mil/cmm (3.80-5.20) 06/03/17 04:00 Hgb 10.1 gm/dL (12-16) L 06/03/17 04:00 Hct 30.7 % (41.0-60) L D 06/03/17 04:00 MCV 80.1 fl (81-100) L 06/03/17 04:00 MCH 26.3 pg (27.0-31.0) L 06/03/17 04:00 MCHC Differential 32.8 pg (28.0-36.0) 06/03/17 04:00 RDW 15.9 % (11.5-20.0) 06/03/17 04:00 Plt Count 207 Th/cmm (150-400) 06/03/17 04:00 MPV 10.0 fl 06/03/17 04:00 Neutrophils % 65.9 % (40.0-80.0) 06/03/17 04:00 Lymphocytes % 25.6 % (20.0-50.0) 06/03/17 04:00 Monocytes % 7.1 % (2.0-10.0) 06/03/17 04:00 Eosinophils % 1.1 % (0.0-5.0) 06/03/17 04:00 Basophils % 0.3 % (0.0-2.0) 06/03/17 04:00 Eos Smear Source URINE 06/03/17 16:41 Eos Smear Total Cells NONE SEEN (NONE SEEN) 06/03/17 16:41 D-Dimer 1950 ng/mL (100-400) H 06/03/17 04:00 Sodium 136 mEq/L (136-145) 06/05/17 04:49 Potassium 3.7 mEq/L (3.5-5.1) 06/05/17 04:49 Chloride 103 mEq/L (98-107) 06/05/17 04:49 Carbon Dioxide 25.6 mEq/L (21.0-31.0) 06/05/17 04:49 Anion Gap 11.1 (7.0-16.0) 06/05/17 04:49 BUN 38 mg/dL (7-25) H 06/05/17 04:49 Creatinine 2.5 mg/dL (0.6-1.2) H 06/05/17 04:49 Est GFR ( Amer) TNP 06/05/17 04:49 Est GFR (Non-Af Amer) TNP 06/05/17 04:49 BUN/Creatinine Ratio 15.2 06/05/17 04:49 Glucose 125 mg/dL (70-105) H 06/05/17 04:49 POC Glucose 279 MG/DL (70 - 105) H 06/05/17 11:42 Hemoglobin A1c % 7.5 % (4.0-6.0) H 06/02/17 21:10 Calcium 8.2 mg/dL (8.6-10.3) L 06/05/17 04:49 Phosphorus 3.6 mg/dL (2.5-5.0) 06/04/17 04:57 Magnesium 1.8 mg/dL (1.9-2.7) L 06/05/17 04:49 Total Bilirubin 0.3 mg/dL (0.3-1.0) 06/02/17 21:10 AST 23 U/L (13-39) 06/02/17 21:10 ALT 15 U/L (7-52) 06/02/17 21:10 Alkaline Phosphatase 75 U/L (34-104) 06/02/17 21:10 Troponin I 0.02 ng/mL (0.01-0.05) 06/05/17 04:49 B-Natriuretic Peptide 294.0 pg/mL (5.0-100.0) H 06/05/17 04:49 Total Protein 7.2 gm/dL (6.0-8.3) 06/02/17 21:10 Albumin 3.8 gm/dL (3.7-5.3) 06/02/17 21:10 Globulin 3.4 gm/dL 06/02/17 21:10 Albumin/Globulin Ratio 1.1 (1.0-1.8) 06/02/17 21:10 Triglycerides 174 mg/dL (<150) H 06/02/17 21:10 Cholesterol 253 mg/dL (<200) H 06/02/17 21:10 LDL Cholesterol Direct 185 mg/dL (75-193) 06/02/17 21:10 HDL Cholesterol 60 mg/dL (23-92) 06/02/17 21:10 TSH 3.34 uIU/ml (0.34-5.60) 06/04/17 04:57 Urine Source RANDOM 06/02/17 21:30 Urine Color YELLOW 06/02/17 21:30 Urine Clarity HAZY (CLEAR) 06/02/17 21:30 Urine pH 6.0 (4.6 - 8.0) 06/02/17 21:30 Ur Specific [place] 1.015 (1.005-1.030) 06/02/17 21:30 Urine Protein 100 mg/dL (NEGATIVE) H 06/02/17 21:30 Urine Glucose (UA) NEGATIVE mg/dL (NEGATIVE) 06/02/17 21:30 Urine Ketones NEGATIVE mg/dL (NEGATIVE) 06/02/17 21:30 Urine Blood NEGATIVE (NEGATIVE) 06/02/17 21:30 Urine Nitrate NEGATIVE (NEGATIVE) 06/02/17 21:30 Urine Bilirubin NEGATIVE (NEGATIVE) 06/02/17 21:30 Urine Urobilinogen 0.2 E.U./dL (0.2 - 1.0) 06/02/17 21:30 Ur Leukocyte Esterase TRACE (NEGATIVE) H 06/02/17 21:30 Urine RBC 0-2 /hpf (0-5) 06/02/17 21:30 Urine WBC 6-10 /hpf (0-5) H 06/02/17 21:30 Ur Epithelial Cells FEW /lpf (FEW) 06/02/17 21:30 Urine Bacteria MANY /hpf (NONE SEEN) 06/02/17 21:30 Ur Random Sodium 71 mmol/L 06/03/17 16:41 Urine Creatinine 26.0 mg/dl (28.0-217.0) L 06/03/17 16:41 - Physical Exam Vitals and I&O: Vital Signs Temp 97.5 F 06/05/17 11:19 Pulse 52 06/05/17 12:02 Resp 18 06/05/17 11:19 BP 164/72 06/05/17 11:19 Pulse Ox 98 06/05/17 11:19 Intake & Output 06/04/17 06/05/17 06/05/17 18:59 06:59 18:59 Intake Total 1000 608.75 Balance 1000 608.75 Weight (lbs) 68.946 kg Intake: Intake, IV Amount 608.75 D5-0.45NS 1,000 ml @ 25 608.75 mls/hr IV .Q24H [facility] Rx#: [id number] Oral 1000 Other: # Voids 5 # Bowel Movements 3 Stool Characteristics Soft Soft Formed Formed Active Medications: Current Medications Acetaminophen (Tylenol) 650 mg PO Q6HR PRN PRN Reason: Pain (Moderate) Stop: 08/03/17 13:06 Last Admin: 06/04/17 16:27 Dose: 650 mg Atorvastatin Calcium (Lipitor) 20 mg PO DAILY [facility] PRN Reason: Protocol Stop: 08/02/17 18:29 Last Admin: 06/05/17 09:20 Dose: 20 mg Ciprofloxacin (Cipro) 250 mg PO BID [facility] Stop: 08/02/17 09:44 Last Admin: 06/05/17 09:39 Dose: 250 mg Furosemide (Lasix) 40 mg IVP DAILY [facility] Stop: 08/03/17 08:59 Last Admin: 06/05/17 11:16 Dose: Not Given Hydralazine HCl (Apresoline) 50 mg PO TID [facility] Stop: 08/03/17 20:59 Last Admin: 06/05/17 09:21 Dose: 50 mg Dextrose/Sodium Chloride (D5-0.45ns) 1,000 mls @ 25 mls/hr IV .Q24H [facility] Stop: 08/02/17 00:14 Last Admin: 06/05/17 07:00 Dose: 25 mls/hr Insulin Aspart (Novolog Insulin Sliding Scale) 0 units SUBQ ACHS [facility] PRN Reason: Protocol Stop: 08/03/17 16:29 Last Admin: 06/05/17 12:21 Dose: 6 units Lactobacillus Rhamnosus (Culturelle) 1 each PO DAILY [facility] Stop: 08/04/17 08:59 Last Admin: 06/05/17 09:21 Dose: 1 each Losartan Potassium (Cozaar) 50 mg PO Q12HR [facility] Stop: 08/03/17 05:19 Last Admin: 06/05/17 09:22 Dose: 50 mg Metoprolol Tartrate (Lopressor) 25 mg PO Q8HR [facility] Stop: 08/03/17 12:59 Last Admin: 06/05/17 05:30 Dose: Not Given Miscellaneous (Probiotic Screen) 1 ea [facility] PRN PRN PRN Reason: PROTOCOL Stop: 08/03/17 15:20 Nifedipine (Procardia Xl) 30 mg PO Q8HR [facility] Stop: 08/02/17 12:59 Last Admin: 06/05/17 05:30 Dose: 30 mg Zolpidem Tartrate (Ambien) 5 mg PO HS PRN PRN Reason: Insomnia Stop: 08/02/17 09:30 General: Alert, Oriented x3, No acute distress HEENT: Atraumatic, PERRLA, EOMI Neck: Supple, +2 carotid pulse wo bruit Cardiovascular: Regular rate, Normal S1, Normal S2 Lungs: Clear to auscultation Abdomen: Bowel sounds, Soft Extremities: no Edema Neurological: Normal speech, Sensation intact Skin: no Rash Psych/Mental Status: Mood NL Assessment/Plan - Assessment Assessment: CKD Type 2 DM s/p hypoglycemia w/ CKD Ess Htn w/ CKD, r/o MI Elevated BNP 2nd to ckd Dyslipidemia Proteinuria - Plan Plan: Lab - Result Diagrams 06/03/17 04:00 06/04/17 04:57 Current Medications Acetaminophen (Tylenol) 650 mg PO Q6HR PRN PRN Reason: Pain (Moderate) Stop: 08/03/17 13:06 Atorvastatin Calcium (Lipitor) 20 mg PO DAILY [facility] PRN Reason: Protocol Stop: 08/02/17 18:29 Last Admin: 06/04/17 09:19 Dose: 20 mg Ciprofloxacin (Cipro) 250 mg PO BID [facility] Stop: 08/02/17 09:44 Last Admin: 06/04/17 09:19 Dose: 250 mg Furosemide (Lasix) 40 mg IVP DAILY [facility] Stop: 08/03/17 08:59 Last Admin: 06/04/17 09:19 Dose: 40 mg Hydralazine HCl (Apresoline) 25 mg PO BID [facility] Stop: 08/03/17 09:29 Last Admin: 06/04/17 09:35 Dose: 25 mg Hydralazine HCl (Apresoline) 50 mg PO TID [facility] Stop: 08/03/17 20:59 Dextrose/Sodium Chloride (D5-0.45ns) 1,000 mls @ 25 mls/hr IV .Q24H [facility] Stop: 08/02/17 00:14 Last Admin: 06/04/17 06:39 Dose: 25 mls/hr Insulin Aspart (Novolog Insulin Sliding Scale) 0 units SUBQ ACHS [facility] PRN Reason: Protocol Stop: 08/03/17 16:29 Insulin Aspart (Novolog Insulin Sliding Scale) 0 units SUBQ Q4HR [facility] PRN Reason: Protocol Stop: 06/04/17 16:29 Last Admin: 06/04/17 12:21 Dose: 2 units Lactobacillus Rhamnosus (Culturelle) 1 each PO DAILY [facility] Stop: 08/04/17 08:59 Losartan Potassium (Cozaar) 50 mg PO Q12HR [facility] Stop: 08/03/17 05:19 Last Admin: 06/04/17 05:37 Dose: 50 mg Metoprolol Tartrate (Lopressor) 25 mg PO Q8HR [facility] Stop: 08/03/17 12:59 Last Admin: 06/04/17 14:27 Dose: 25 mg Miscellaneous (Probiotic Screen) 1 ea [facility] PRN PRN PRN Reason: PROTOCOL Stop: 08/03/17 15:20 Nifedipine (Procardia Xl) 30 mg PO Q8HR [facility] Stop: 08/02/17 12:59 Last Admin: 06/04/17 12:22 Dose: 30 mg Zolpidem Tartrate (Ambien) 5 mg PO HS PRN PRN Reason: Insomnia Stop: 08/02/17 09:30 Lab - Result Diagrams 06/03/17 04:00 06/05/17 04:49 Cr. up to 2.5 possibly from diuretics VQ scan, Duplex scan were neg BP under better control requiring multiple BP meds Renal US showed unequal sized kidneys, right 10.2, left 7.5 Consider MI due to accelerated HTN & unequal sized kidneys BS much improved, stay off sulfonylureas BNP eleveated 2nd to ckd, doubt in chf based on cxr & clinical exam & symptoms discontinue lasix Nutritional Asmnt/Malnutr-PDOC - Dietary Evaluation Malnutrition Findings (Please click <Entered> for more info): Nutritional Asmnt/Malnutrition Start: 06/03/17 09: 49 Text: Status: Complete Freq: Document 06/03/17 09:50 [email or web address] (Rec: 06/03/17 09:59 [email or web address] [id number]) Nutritional Asmnt/Malnutrition Patient General Information Nutritional Screening Consult Diagnosis hypoglycemia, abnormal EKG, ALOC Pertinent Medical Hx/Surgical Hx DM Subjective Information Consult- DM. Pt speaks [place] . Staff translated. Pt does not eat very well, usually eats small amounts. Reports wt loss, but states UBW: 150 lbs , current wt: 152 lbs. Pt states she does not eat tortillas, but otherwise does not follow any diet. Pt is accpeting of diet education. Tolerated clear liquid diet breakfast. Current Diet Order/ Nutrition Support clear liquid Patient / S.O Can Pertinent Medications D10 @ 50 ml/hr Pertinent Labs 06/03 Na: 134, K: 3.4, BUN: 31 , Cr: 2.2, glucose: 132-186, hgba1c: 7.5, triglycerides: 174 Nutritional Hx/Data Height 1.52 m Height (Calculated Centimeters) 152.4 Current Weight (lbs) 68.946 kg Weight (Calculated Kilograms) 68.9 Weight (Calculated Grams) 74191.0 Usual body Weight (lbs) 150 % Usual Body Weight 101 [place] Body Weight 100 % [place] Body Weight 152 Recent Weight Change No Weight Status Overweight GI Symptoms GI Symptoms None Food Allergies No Usual diet at home no tortillas Skin Integrity/Comment: no wounds noted Current %PO awaiting Estimated Nutritional Goals BEE in Kcals: Adj wt of IBW Calories/Kcals/Kg 25-30 Kcals Calculated 3363-6555 kcals Protein: Adj wt of IBW Protein g/k Protein Calculated 51 g Fluid: ml 1530 mL (30 ml/kg) Nutritional Problem 2. Problem Problem inadequate oral intake Etiology DX, course of care Signs/Symptoms: clear liquid diet 1. Problem Problem food/nutrition related knowledge deficit Etiology DM Signs/Symptoms: pt not following DM diet at home, hgba1c: 7.5 Malnutrition Alert Protein-Calorie Malnutrition N/A Is there a minimum of two criteria No selected? Query Text:Check all the applicable criteria. A minimum of two criteria are recommended for diagnosis of either severe or non-severe malnutrition. Malnutrition Related to Morbid Obesity Malnutrition related to morbid obesity No Intervention/Recommendation Recommendations by RD Dietary Education by RD1 Comments 1. Provided DM diet education. Handout provided. Staff helped translate. No questions at this time. 2. When medically able, advance diet as tolerated to [facility], 60 gm CHO diet. Expected Outcomes/Goals Expected Outcomes/Goals 1. Pt to verbalize understanding of DM diet 2. Advance diet within 48 hours 3. Pt to tolerate diet without GI distress 4. Pt to have glycemic control 5. Wt stability
--- NOTE | 2017-06-05 14:18 | Consultation ---
DATE OF CONSULTATION: 06/03/2017 PATIENT OF: Dr. Oumar Regan HISTORY AND PHYSICAL: This is a 71-year-old female patient who was brought to the hospital. The patient has hypertension. The patient has episodes of hypoglycemia with diabetes. During the hospital stay, the patient had elevated BNP level. EKG showed T-wave changes of the anterolateral leads with normal troponin levels. PAST MEDICAL HISTORY: Hypertension, diabetes, diabetic CKD 2, iron deficiency anemia and history of . FAMILY HISTORY: Unremarkable. SOCIAL HISTORY: No history of smoking, alcohol abuse. ALLERGIES: None. PHYSICAL EXAMINATION: VITAL SIGNS: Blood pressure 170/80, pulse 78 and respirations 28. HEAD: Normocephalic. No lumps or bumps. EYES: Pupils equal, reactive to light. Fundi show AV nicking. Sclerae white. Conjunctivae pink. NECK: Carotid 2+. Normal upstroke. JVD 10 cm above the sternal angle. Thyroid not palpable. Lymph nodes not palpable. CHEST: Shows increased AP diameter. No kyphosis, scoliosis. LUNGS: Bilateral rales. Decreased breath sounds in both the bases. HEART: PMI sixth intercostal space with lateral to midclavicular line. S1, S2, S3, S4, systolic murmur, grade 2/6, lower left sternal border without radiation. ABDOMEN: Soft. Liver, spleen not palpable. Hepatojugular reflux positive. Bowel sounds active. RECTAL: Deferred. EXTREMITIES: Peripheral pulses 2+. No pedal edema. CLINICAL IMPRESSION: Congestive heart failure, diastolic dysfunction, diabetes mellitus type 2, episodes of hypoglycemia, hypertension, hyperlipidemia, GERD, diabetic CKD stage 2, iron deficiency anemia, insomnia, osteoporosis. PLAN: Admit the patient. We will continue present care. Start the patient on Lasix. Get echocardiogram. JOB# [id number]
--- NOTE | 2017-06-05 14:20 | Cardiology ---
PATIENT OF: Dr. Oumar Regan. PROCEDURE PERFORMED: Echocardiogram. M-MODE ECHOCARDIOGRAM: Mitral valve, anterior leaflet of mitral valve shows normal excursion, EF velocity. Posterior leaflet of mitral valve shows normal excursion. Left ventricular posterior wall shows increased thickness, normal excursion. Interventricular septum shows increased thickness, normal excursion, hypertrophy of the left ventricle, ejection fraction 50%. Left atrium enlarged 4.7 cm. Aortic root shows normal dimension, normal excursion of aortic leaflets. CONCLUSION: Hypertrophy of the left ventricle, left atrial enlargement, ejection fraction 50%. 2D echo on the same patient long axis view showed normal-sized left ventricle with hypertrophy of the left ventricle. Left atrium enlarged. Aortic root shows normal dimension, normal excursion of aortic leaflets. Short axis view of mitral valve normal. Short axis view of aortic valve normal. Apical 4 chamber view showed normal-sized left ventricle with hypertrophy of the left ventricle. Left atrium enlarged. Right ventricular cavity, right atrium normal, no pericardial effusion. CONCLUSION: Hypertrophy of the left ventricle. Left atrial enlargement, ejection fraction 50%. Doppler study shows prominent A wave consistent with poor compliance of left ventricle. Mild mitral regurgitation, trace pulmonary regurgitation, mild pulmonary hypertension. This right ventricular systolic pressure 49 mmHg. JOB# [id number]
[2017-06-10 10:22] LABS: MICROALBUMIN RANDOM RUINE 315.4
--- NOTE | 2017-06-10 13:10 | Discharge Summary ---
DATE OF DISCHARGE: 06/05/2017 DISCHARGE DIAGNOSES: 1. Severe hypoglycemia, resolved. 2. Poorly controlled diabetes under improved management. 3. Altered level of consciousness, resolved. 4. Body tremors, resolved. 5. Abnormal EKG, improved. 6. Congestive heart failure, diastolic dysfunction with hyponatremia. 7. Hypertension, under control. 8. Anemia, being treated. 9. Diabetes, under better control. 10. Hypokalemia, resolved. 11. Hyponatremia, resolved. 12. Chronic kidney disease, under treatment. 13. Metabolic derangement, resolved. 14. Hyperlipidemia, improving. 15. Urinary tract infection, under control. RECENT MEDICAL HISTORY: A 71-year-old female presented to [facility] [place] ER the evening of 06/02/2017, experiencing chills, trembling, very, very low glucose reading in the 50s, recently changed her diabetes by mouth medication, brought to the Emergency Department at [facility] [place] with multiple pathologies on lab testing including hemoglobin 10.1, low potassium 3.4, low sodium 135. The sodium was low at 135 on presentation. The BUN was elevated at 31. The creatinine elevated at 2.2. Hemoglobin A1c elevated at 7.5. Abnormal EKG demonstrating T-wave abnormalities, borderline pathologic QT prolonged intervals, rule out lateral ischemia. DIAGNOSTIC DATA: In support of admission includes the following on 05/14/2017, cardiac echo was performed demonstrating an ejection fraction of 60-65%, mild left ventricular hypertrophy, mild mitral regurgitation. EKG performed on 06/02/2017 demonstrating prolonged QT interval, nonspecific T-wave abnormalities, sinus rhythm considered to be abnormal EKG, also abnormal on the and on the 06/04/2017. On 06/03/2017, microalbumin and creatinine ratio grossly high at 1516 indicative of kidney disease. Readings of hemoglobin 10.7 on 06/05/2017. Sodium below normal on 06/05/2017 130. BNP very elevated at 736, confirming congestive heart failure. Potassium below normal at 3.4 on the . Sodium below normal 135. Calcium below normal at 8.5. D-dimer measured on the May and indicating possible pulmonary embolus or deep vein thrombosis. We have other labs confirming the below normal sodium, below normal potassium, below normal calcium, grossly elevated glucose at 186 on 06/03/2017, 10.1 hemoglobin on 06/03/2017, hematocrit 30.7 both demonstrating gross anemia. BNP elevated on the of 608. Troponin 1 normal on the at 0.03. High protein in the urine on 06/02/2017 at 100. Urine analysis culture demonstrating greater than 100,000 Gram-negative rods, preliminary; cholesterol grossly elevated at 253 on 06/02/2017 and triglycerides 174 on 06/02/2017 and indicating hyperlipidemia. Another exam, V/Q scan, no evidence of pulmonary embolus on 06/03/2017 and also the ultrasound of the lower extremities was negative for DVT, both right and left lower extremities. HOSPITAL COURSE AND TREATMENT: DAY #1, 06/02/2017: This patient, I was called by the ER doctor the late evening of 06/02/2017 indicating by the Emergency Department physician that this patient was experiencing an altered level of consciousness, very poorly controlled diabetes, abnormal EKG, gross hypoglycemia, and considering her age of well beyond 69 years of age, the Emergency Department physician felt this patient needed to be admitted and I agreed and because of the precarious presentation of this patient to the Emergency Department, this patient was admitted by myself 06/02/2017. She was admitted so late in the evening that I did not have a chance to see her actually during the day of the , I was notified very close to the end of the 24-hour day. DAY #2, 06/03/2017: I saw the patient in person and viewing the Emergency Department data. Hemoglobin of 10.1. Potassium 3.4 below normal, sodium 135 below normal, demonstrating metabolic derangement, glucose in the low 50s on an initial presentation, elevated BUN 31, creatinine 2.2. Hemoglobin A1c 7.5. D-dimer 1950 that I had ordered the evening of the . Troponin one that I had ordered on the evening of the 0.03 within normal limits. BNP that I had ordered on the evening of the are grossly elevated at 600, today giving definitive information that this patient was in fact suffering from congestive heart failure. The patient at home was supposed to be taking glipizide 5 mg p.o. every day, supposed to be taking nifedipine ER extended release 90 mg 2 times a day. When I saw her on the morning of the of the day #2, she had her lungs were clear. Abdomen was soft. Positive bowel sounds, nondistended. Extremities were nontender to palpation. Genitalia was refused. Sinus rhythm. No gross murmurs. Abnormal EKG with again the T-wave abnormalities, rule out lateral ischemia, sinus bradycardia at 52 beats per minute, rule out congestive heart failure, diastolic dysfunction, rule out pulmonary embolus, and DVTs of the lower extremities and there were consultants called in for this case. One was Dr. Cheri Mix, Cardiology for the abnormal EKG, one was Dr. Renner for the unstable control of her diabetes, and one was Dr. Hendricks for the Nephrology consult for the chronic kidney disease, un-staged. DAY #3, 06/04/2017: Blood pressure 186/62, temperature 97.1, heart rate 60 per minute, 17 respiratory rate, 96% O2 saturation. Glucose much improved 116, creatinine 2.0. BNP still grossly elevated at 736. The patient was alert and oriented x 3. Sinus rhythm in the 50s up to 63, currently. Lungs were clear. Abdomen, positive bowel sounds, nondistended. Definitive Diagnosis, congestive heart failure with diastolic dysfunction. Medicines were being added to her treatment protocol, metoprolol 25 p.o. 3 times a day, losartan 50 mg p.o. b.i.d. She was on a sliding scale for the insulin. The sliding scale that I initially set up was regular insulin 150-202 units, checking blood sugars every 4 hours, 200-250 4 units; 251-300 6 units; 301-350 8 units; and greater than 350 10 units with sliding scale that I started her on. Dr. Renner changed that to more definitive sliding scale. 06/05/2017, DAY #4: This patient was deemed to be stable and able to go home and be seen as an outpatient for her continued specialty referrals. Dr. Cheri Mix has placed this patient on clonidine 0.1 mg p.o. q.6 hours with 120 tablets, Lasix 40 mg p.o. every day #30, metoprolol tartrate 25 mg p.o. 3 times a day #90, and Procardia-XL 90 mg p.o. every day #30. Dr. Renner on discharge placed this patient on Actos 30 mg p.o. every day and I believe it is ciprofloxacin 250 mg p.o. 2 times a day for 7 days #14. This was for any continued residual urinary tract infection issues. Condition on discharge of this patient was stable. The patient was discharged directly to home and told to call Dr. Regan later in the day to develop a followup appointment for the beginning of the next week. This patient will continue to follow up with these specialists and the condition on discharge was stable. The consultants called in for this case are Dr. Renner Internal Medicine for diabetes out of control, Dr. Cheri Mix for abnormal EKG and congestive heart failure, diastolic dysfunction, and Dr. Hendricks for chronic kidney disease. JOB# [id number]
== END 2017-06-05 13:45 | disposition home or self-care (01) | DRG 637 ==
LOC: ER 19:33 → TELE 23:43
PROVIDERS: ADMIT General Practice; ATTEND General Practice
DX: E11.649 Type 2 diabetes mellitus with hypoglycemia without coma (principal); I50.31 Acute diastolic (congestive) heart failure; N18.4 Chronic kidney disease, stage 4 (severe); I95.9 Hypotension, unspecified; I13.0 Hypertensive heart and chronic kidney disease with heart failure and stage 1 through stage 4 chronic kidney disease, or unspecified chronic kidney disease; E11.22 Type 2 diabetes mellitus with diabetic chronic kidney disease; R00.1 Bradycardia, unspecified; N39.0 Urinary tract infection, site not specified; G47.00 Insomnia, unspecified; T38.3X5A Adverse effect of insulin and oral hypoglycemic [antidiabetic] drugs, initial encounter; E87.6 Hypokalemia; E78.5 Hyperlipidemia, unspecified; K21.9 Gastro-esophageal reflux disease without esophagitis; D50.9 Iron deficiency anemia, unspecified; M81.0 Age-related osteoporosis without current pathological fracture; Y92.89 Other specified places as the place of occurrence of the external cause; Z79.4 Long term (current) use of insulin
CPT/HCPCS: 36415-UA; 71010-TC; 76770-TC; 80048-TC; 80053-TC; 80061-TC; 81001-TC; 81003-TC; 81015-TC; 82043-90; 82570-TC; 82948-90; 83036-90; 83735-TC; 83880-TC; 84100-TC; 84300-TC; 84443-TC; 84484-TC; 85025-TC; 85379-TC; 87086-90; 93005; 93970-TC-50; A9540; A9567; J1815; J1940; J2765; Z7610